=== PATIENT | female | born 1995 | race African-American/Black ===

== ENCOUNTER 2018-06-04 15:34 | Emergency (ER) | payer MEDICAID ==
[~2018-06-04] VITALS: Ht 162.6 cm; Wt 62.0 kg
[2018-06-04 15:51] VITALS: BP 107/65
== END 2018-06-04 18:19 | disposition left against medical advice (07) ==
LOC: ER 16:36
DX: Z53.21 Procedure and treatment not carried out due to patient leaving prior to being seen by health care provider (principal)